=== PATIENT | female | born 1960 | race Caucasian/White ===

== ENCOUNTER 2016-12-19 17:32 | Emergency (ER) | payer OTHER ==
[~2016-12-19] VITALS: Ht 147.3 cm; Wt 47.6 kg
[~2016-12-19 17:32] MED LIST: CARI350T PO; CLON2TAB4 PO; LEVO150T PO; METH5TAB PO; METO5TAB87 PO; PANT40TA2 PO
[2016-12-19] MEDS ORDERED: IV SET PRIMARY PUMP SET 1 EA INFUS.SET MC ONE (17:54)
[2016-12-19] MEDS ORDERED: IV NS 0.9% 500 ML IV ONE (17:54)
[2016-12-19 17:59] LABS: BASOPHILS # (AUTO) 0.1 /CMM (0.0-0.2); BASOPHILS % (AUTO) 0.7 % (0.0-2.0); DIFF TOTAL % 100 %; EOSINOPHILS # (AUTO) 0.1 /CMM (0.0-0.7); EOSINOPHILS % (AUTO) 1.7 % (0.0-6.0); HEMATOCRIT 40 % (33-45); HEMOGLOBIN 13.2 g/dL (11.5-14.8); LYMPHOCYTES # (AUTO) 2.4 /CMM (0.8-4.8); LYMPHOCYTES % (AUTO) 27.5 % (20.0-44.0); MEAN CORPUSCULAR HEMOGLOBIN 29 PG (26.0-33.0); MEAN CORPUSCULAR HGB CONC 33 g/dl (31.0-36.0); MEAN CORPUSCULAR VOLUME 89 fL (82-100); MONOCYTES # (AUTO) 0.7 /CMM (0.1-1.30); NEUTROPHILS # (AUTO) 5.4 /CMM (1.8-8.9); NEUTROPHILS % (AUTO) 62.1 % (43.0-81.0); PLATELET COUNT (AUTO) 383 /CMM (150-450); WHITE BLOOD COUNT (AUTO) 8.8 K/uL (4.3-11.0)
[2016-12-19] MEDS ORDERED: IV NS 0.9% 500 ML BAG IV ONE (18:00)
[2016-12-19 18:08] LABS: CALCIUM, SERUM 8.7 mg/dL (8.5-10.1); CREATININE 0.8 mg/dL (0.6-1.3); POTASSIUM 3.7 mmol/L (3.5-5.1)
[2016-12-19 18:13] LABS: ALBUMIN 3.3 g/dL (3.4-5.0); BILIRUBIN,DIRECT 0.1 mg/dL (0.0-0.2); BILIRUBIN,TOTAL 0.4 mg/dL (0.2-1.0); INDIRECT BILIRUBIN 0.3 mg/dL (0.0-1.1); TOTAL PROTEIN, SERUM 7.8 g/dL (6.4-8.2)
[2016-12-19] MEDS ORDERED: ONDANSETRON HCL/PF 4 MG/2 ML VIAL ONE ×2 (18:28→19:14)
[2016-12-19] MEDS ORDERED: MORPHINE SULFATE INJ 4 MG/ML DISP.SYRIN ONE (18:28)
[2016-12-19] MEDS ORDERED: ONDANSETRON HCL/PF 4 MG/2 ML VIAL IV ONE ×2 (18:30→19:30)
[2016-12-19] MEDS ORDERED: MORPHINE SULFATE INJ 2 MG/ML DISP.SYRIN IV ONE (18:30)
[2016-12-19] MEDS ORDERED: IOHEXOL-300 100 ML VIAL IV ONE (18:45)
[2016-12-19] MEDS ORDERED: IV NS 0.9% 250 ML IV ONE (18:45)
[2016-12-19] MEDS ORDERED: CT SWABBABLE VALVE TRANS SET 1 EA INFUS.SET MC ONE (18:45)
[2016-12-19 20:04] VITALS: BP 132/85
== END 2016-12-19 20:04 | disposition home or self-care (01) ==
LOC: ER 17:34
DX: R10.84 Generalized abdominal pain (principal); R19.00 Intra-abdominal and pelvic swelling, mass and lump, unspecified site; K50.90 Crohn's disease, unspecified, without complications; J44.9 Chronic obstructive pulmonary disease, unspecified; E03.9 Hypothyroidism, unspecified; F17.200 Nicotine dependence, unspecified, uncomplicated
CPT/HCPCS: 36415; 71010-TC; 80048-TC; 80076-TC; 83690-TC; 85025-TC; A4606; J2270; J2405; J7040; J7050; Q9967; Z7610

== ENCOUNTER 2017-11-02 14:48 | Emergency (ER) | payer OTHER ==
[~2017-11-02] VITALS: Ht 149.9 cm; Wt 48.5 kg
[2017-11-02 14:52] VITALS: BP 125/85
== END 2017-11-02 16:09 | disposition home or self-care (01) ==
LOC: ER 14:58
DX: Z53.21 Procedure and treatment not carried out due to patient leaving prior to being seen by health care provider (principal)
CPT/HCPCS: A4606; Z7610

== ENCOUNTER 2019-08-26 12:21 | Emergency (ER) | payer OTHER ==
[~2019-08-26] VITALS: Ht 147.3 cm; Wt 53.5 kg
[~2019-08-26 12:21] MED LIST changes: +CLON2TAB11 PO; -CLON2TAB4 PO
--- NOTE | 2019-08-26 12:50 | NUR ---
[id number] FRM HOME, ABDOMINAL PAIN W/ N/V X 1-2 MONTHS. PATIENT ACCOMPANIED TO BED. CONNECTED TO MONITOR. WILL CONTINUE TO MONITOR ACCORDINGLY
[2019-08-26] MEDS ORDERED: IV NS 0.9% 1,000 ML BAG IV ONE (13:00)
[2019-08-26] MEDS ORDERED: ONDANSETRON HCL/PF 4 MG/2 ML VIAL IVP ONE (13:00)
[2019-08-26] MEDS ORDERED: MORPHINE SULFATE INJ 2 MG/ML DISP.SYRIN IV ONE (13:00)
[2019-08-26] MEDS ORDERED: HYDROMORPHONE INJ 0.5 MG/0.5 ML SYRINGE IV ONE (13:30)
[2019-08-26 13:45] LABS: BASOPHILS % (AUTO) 0.2 % (0.0-2.0); EOSINOPHILS % (AUTO) 0.1 % (0.0-6.0); HEMATOCRIT 44 % (33-45); HEMOGLOBIN 14.4 g/dL (11.5-14.8); LYMPHOCYTES # (AUTO) 0.8 /CMM (0.8-4.8); LYMPHOCYTES % (AUTO) 4.7 % (20.0-44.0); MEAN CORPUSCULAR HGB CONC 33 g/dl (31.0-36.0); MEAN CORPUSCULAR VOLUME 92 fL (82-100); MONOCYTES % (AUTO) 6.1 % (2.0-12.0); NEUTROPHILS # (AUTO) 14.9 /CMM (1.8-8.9); NEUTROPHILS % (AUTO) 88.9 % (43.0-81.0); PLATELET COUNT (AUTO) 368 /CMM (150-450); RED BLOOD CELL COUNT(AUTO) 4.78 MIL/uL (4.0-5.2); WHITE BLOOD COUNT (AUTO) 16.7 K/uL (4.3-11.0)
[2019-08-26 13:50] LABS: CALCIUM, SERUM 8.8 mg/dL (8.5-10.1); CREATININE 0.7 mg/dL (0.6-1.3); POTASSIUM 4.4 mmol/L (3.5-5.1)
[2019-08-26] MEDS ORDERED: HYDROMORPHONE 1 MG/1 ML DISP.SYRIN ONE (13:55)
[2019-08-26] MEDS ORDERED: ONDANSETRON HCL/PF 4 MG/2 ML VIAL ONE (13:55)
[2019-08-26 13:56] LABS: BILIRUBIN,DIRECT 0.2 mg/dL (0.0-0.2); BILIRUBIN,TOTAL 0.5 mg/dL (0.2-1.0)
--- NOTE | 2019-08-26 14:01 | NUR ---
patient left unit via rney with senior radiation protection technician
--- NOTE | 2019-08-26 14:14 | NUR ---
patient back from radiology
[2019-08-26 15:37] LABS: APPEARANCE,URINE Clear (CLEAR); BILIRUBIN,URINE MODERATE (NEGATIVE); BLOOD, URINE Negative Ery/uL (NEGATIVE); COLOR,URINE Amber (YELLOW); KETONES,URINE 80 (NEGATIVE); LEUKOCYTE ESTERASE ,URINE Negative (NEGATIVE); NITRITE, URINE Negative (NEGATIVE); PROTEIN,URINE 30 mg/dl (NEGATIVE); UGLUCOSE Negative (NEGATIVE)
--- NOTE | 2019-08-26 16:17 | NUR ---
Patient discharged to home in stable condition. Written and verbal after care instructions given. Written prescription provided to patient. Patient verbalizes understanding of instruction.
[2019-08-26 16:18] VITALS: BP 140/70
[2019-08-26 16:32] LABS: BACTERIA,URINE None seen /HPF (None Seen); RBC,URINE 0-2 /HPF (0-2); SQUAMOUS EPITHELIAL CELL,UR Few /HPF (None Seen); WBC,URINE 0-2 /HPF (0-3)
== END 2019-08-26 16:19 | disposition home or self-care (01) ==
LOC: ER 12:24
DX: N94.89 Other specified conditions associated with female genital organs and menstrual cycle (principal); K59.00 Constipation, unspecified; R11.2 Nausea with vomiting, unspecified; G89.29 Other chronic pain; K50.90 Crohn's disease, unspecified, without complications; J44.9 Chronic obstructive pulmonary disease, unspecified; E03.9 Hypothyroidism, unspecified; F17.200 Nicotine dependence, unspecified, uncomplicated; Z79.899 Other long term (current) drug therapy
CPT/HCPCS: 36415; 74176; 80048; 80076; 81001; 85025; 83690; 96361; 96374; 96375; 99284; J1170; J2405; J7030; 81000-TC

== ENCOUNTER 2021-05-25 20:45 | Emergency (ER) | payer OTHER ==
[~2021-05-25] VITALS: Ht 149.9 cm; Wt 49.9 kg
--- NOTE | 2021-05-25 21:04 | NUR ---
PATIENT CAME TO THE ER BED 7 BIBRA FROM HOME C/O DIARRHEA, NAUSEA, VOMITING, AND HEADACHE. PATIENT IS ALERT AND ORIENTED x4. DENIES SHORTNESS OFBREATH. CONNECTED TO THE MONITOR.
[2021-05-25] MEDS ORDERED: ONDANSETRON HCL/PF 4 MG/2 ML VIAL ONE (21:06)
--- NOTE | 2021-05-25 21:09 | NUR ---
BLOOD COLLECTED AND SENT TO THE LAB.
[2021-05-25] MEDS: IV NS 0.9% 1,000 ML BAG IV ONE (21:13)
[2021-05-25] MEDS: ONDANSETRON HCL/PF 4 MG/2 ML VIAL IVP ONE (21:13)
[2021-05-25 21:14] LABS: BASOPHILS # (AUTO) 0.1 K/uL (0.0-0.2); BASOPHILS % (AUTO) 0.6 % (0.0-2.0); HEMATOCRIT 48 % (33-45); HEMOGLOBIN 15.6 g/dL (11.5-14.8); LYMPHOCYTES # (AUTO) 0.8 K/uL (0.8-4.8); LYMPHOCYTES % (AUTO) 4.3 % (20.0-44.0); MEAN CORPUSCULAR HGB CONC 33 g/dl (31.0-36.0); MEAN CORPUSCULAR VOLUME 92 fL (82-100); MONOCYTES # (AUTO) 0.7 K/uL (0.1-1.30); MONOCYTES % (AUTO) 3.7 % (2.0-12.0); NEUTROPHILS # (AUTO) 17.2 K/uL (1.8-8.9); NEUTROPHILS % (AUTO) 91.4 % (43.0-81.0); PLATELET COUNT (AUTO) 391 K/uL (150-450); RED BLOOD CELL COUNT(AUTO) 5.18 MIL/uL (4.0-5.2); WHITE BLOOD COUNT (AUTO) 18.8 K/uL (4.3-11.0)
[2021-05-25 21:28] LABS: ALBUMIN 3.5 g/dL (3.4-5.0); BILIRUBIN,DIRECT 0.3 mg/dL (0.0-0.2); BILIRUBIN,TOTAL 0.6 mg/dL (0.2-1.0); CALCIUM, SERUM 9.2 mg/dL (8.5-10.1); CREATININE 0.9 mg/dL (0.6-1.3); TOTAL PROTEIN, SERUM 8.1 g/dL (6.4-8.2)
[2021-05-25] MEDS ORDERED: ONDA4TAB11 PO (21:45)
[2021-05-25 22:34] LABS: BILIRUBIN,URINE SMALL (NEGATIVE); COLOR,URINE YELLOW (YELLOW); LEUKOCYTE ESTERASE ,URINE Trace (NEGATIVE); NITRITE, URINE Negative (NEGATIVE); PROTEIN,URINE 30 mg/dl (NEGATIVE); UGLUCOSE Negative (NEGATIVE)
[2021-05-25 22:36] LABS: BACTERIA,URINE Few /HPF (None Seen); RBC,URINE NONE SEEN /HPF (0-2); SQUAMOUS EPITHELIAL CELL,UR Few /HPF (None Seen)
--- NOTE | 2021-05-25 22:36 | NUR ---
URINE COLLECTED AND SENT TO LAB
[2021-05-26] MEDS ORDERED: POLY17PO4 PO (00:56)
[2021-05-26] MEDS ORDERED: CIPR-262 PO (00:56)
[2021-05-26] MEDS ORDERED: METR500T PO (00:56)
--- NOTE | 2021-05-26 01:23 | NUR ---
Pt is medically stable for d/c per MD. IV removed. Catheter intact and site benign. Pressure and 4x4 applied to site. No bleeding noted.Patient discharged to home in stable condition. Rx and Written and verbal after care instructions given. Patient verbalizes understanding of instruction.
[2021-05-26 02:03] VITALS: BP 133/73
== END 2021-05-26 01:23 | disposition home or self-care (01) ==
LOC: ER 21:01
DX: R10.84 Generalized abdominal pain (principal); R11.10 Vomiting, unspecified; J44.9 Chronic obstructive pulmonary disease, unspecified; E03.9 Hypothyroidism, unspecified; Z87.891 Personal history of nicotine dependence; Z79.899 Other long term (current) drug therapy
CPT/HCPCS: 36415; 74176; 80048; 80076; 81001; 83690; 85025; 96361; 96374; 99284; J2405; J7030

== ENCOUNTER 2021-09-22 08:01 | Emergency (ER) | payer OTHER ==
[~2021-09-22] VITALS: Ht 147.3 cm; Wt 46.3 kg
[~2021-09-22 08:01] MED LIST changes: +CIPR-262 PO; +METR500T PO; +ONDA4TAB11 PO; +POLY17PO4 PO
[2021-09-22 08:23] VITALS: BP 179/87
[2021-09-22 09:05] LABS: BILIRUBIN,URINE Negative (NEGATIVE); COLOR,URINE YELLOW (YELLOW); LEUKOCYTE ESTERASE ,URINE Negative (NEGATIVE); NITRITE, URINE Negative (NEGATIVE); PROTEIN,URINE Negative (NEGATIVE); UGLUCOSE Negative (NEGATIVE); UROBILINOGEN,URINE 0.2 EU/dL (0.2)
[2021-09-22] MEDS ORDERED: ERYT3.5O9 EACHEYE (09:25)
--- NOTE | 2021-09-22 09:44 | NUR ---
Patient discharged to home in stable condition. Written and verbal after care instructions given. Patient verbalizes understanding of instruction.
== END 2021-09-22 09:45 | disposition home or self-care (01) ==
LOC: ER 08:29
DX: H00.014 Hordeolum externum left upper eyelid (principal); H00.011 Hordeolum externum right upper eyelid; K50.90 Crohn's disease, unspecified, without complications; J44.9 Chronic obstructive pulmonary disease, unspecified; E03.9 Hypothyroidism, unspecified; Z87.891 Personal history of nicotine dependence; Z79.899 Other long term (current) drug therapy
CPT/HCPCS: 87086-TC

== ENCOUNTER 2021-10-17 07:19 | Emergency (ER) | payer OTHER ==
[~2021-10-17] VITALS: Ht 147.3 cm; Wt 52.2 kg
[~2021-10-17 07:19] MED LIST changes: +ERYT3.5O9 EACHEYE
--- NOTE | 2021-10-17 07:48 | NUR ---
DR BERNSTEIN AT BEDSIDE FOR MD [address]
--- NOTE | 2021-10-17 07:48 | NUR ---
PT CAME TO ER C/O HEADACHE, N/V SINCE THIS MORNING. HX OF EYE STYE, CROHN'S DISEASE. AAOX4. ASSISTED TO ER BED 4, BLANKETS GIVEN.
--- NOTE | 2021-10-17 08:24 | NUR ---
blood sample obtained and sent to lab
[2021-10-17] MEDS ORDERED: KETOROLAC TROMETHAMINE 15 MG/ML VIAL ONE (08:27)
[2021-10-17] MEDS ORDERED: PROCHLORPERAZINE EDISYLATE 10 MG/2 ML VIAL ONE (08:28)
[2021-10-17] MEDS ORDERED: diphenhydrAMINE HCL 50 MG/ML VIAL ONE (08:29)
[2021-10-17] MEDS ORDERED: PROCHLORPERAZINE EDISYLATE 10 MG/2 ML VIAL IVP ONE (08:30)
[2021-10-17] MEDS ORDERED: IV NS 0.9% 1,000 ML BAG IV ONE (08:30)
[2021-10-17] MEDS ORDERED: KETOROLAC TROMETHAMINE INJ 30 MG/ML VIAL IV ONE (08:30)
[2021-10-17] MEDS ORDERED: diphenhydrAMINE HCL 50 MG/ML VIAL IV ONE (08:30)
[2021-10-17 08:34] LABS: BASOPHILS # (AUTO) 0.1 K/uL (0.0-0.2); BASOPHILS % (AUTO) 1.2 % (0.0-2.0); EOSINOPHILS % (AUTO) 0.4 % (0.0-6.0); HEMATOCRIT 42 % (33-45); HEMOGLOBIN 13.5 g/dL (11.5-14.8); LYMPHOCYTES # (AUTO) 2.2 K/uL (0.8-4.8); LYMPHOCYTES % (AUTO) 23.6 % (20.0-44.0); MEAN CORPUSCULAR HGB CONC 33 g/dl (31.0-36.0); MEAN CORPUSCULAR VOLUME 94 fL (82-100); MONOCYTES # (AUTO) 0.8 K/uL (0.1-1.30); MONOCYTES % (AUTO) 8.2 % (2.0-12.0); NEUTROPHILS # (AUTO) 6.1 K/uL (1.8-8.9); NEUTROPHILS % (AUTO) 66.6 % (43.0-81.0); PLATELET COUNT (AUTO) 339 K/uL (150-450); RED BLOOD CELL COUNT(AUTO) 4.42 MIL/uL (4.0-5.2); WHITE BLOOD COUNT (AUTO) 9.2 K/uL (4.3-11.0)
--- NOTE | 2021-10-17 08:46 | NUR ---
PT BACK FROM CT
[2021-10-17 09:11] LABS: CARBON DIOXIDE 30 mmol/L (21-32); CHLORIDE 102 mmol/L (98-107); CREATININE 0.8 mg/dL (0.6-1.3); GLUCOSE 104 mg/dL (74-106); POTASSIUM 3.3 mmol/L (3.5-5.1); SODIUM SERUM 139 mmol/L (136-145); UREA NITROGEN, BLOOD 9 mg/dL (7-18)
[2021-10-17 09:18] LABS: ALANINE AMINOTRANSFERASE 17 U/L (12-78); ALBUMIN 3.7 g/dL (3.4-5.0); ALKALINE PHOSPHATASE 85 U/L (46-116); ASPARTATE AMINOTRANSFERASE 23 U/L (15-37); BILIRUBIN,DIRECT 0.1 mg/dL (0.0-0.2); BILIRUBIN,TOTAL 0.4 mg/dL (0.2-1.0); LIPASE 44 U/L (73-393); TOTAL PROTEIN, SERUM 7.9 g/dL (6.4-8.2)
--- NOTE | 2021-10-17 09:21 | NUR ---
urine sample obtained and sent to lab
[2021-10-17] MEDS ORDERED: ONDANSETRON HCL/PF 4 MG/2 ML VIAL ONE (10:13)
[2021-10-17] MEDS ORDERED: ONDANSETRON HCL/PF - ER 4 MG/2 ML VIAL IV ONE (10:30)
[2021-10-17 10:48] LABS: BILIRUBIN,URINE NEGATIVE (NEGATIVE); COLOR,URINE YELLOW (YELLOW); LEUKOCYTE ESTERASE ,URINE NEGATIVE (NEGATIVE); NITRITE, URINE NEGATIVE (NEGATIVE); PH,URINE 6.5 (5.0-8.0); PROTEIN,URINE NEGATIVE (NEGATIVE); UGLUCOSE NEGATIVE (NEGATIVE); UROBILINOGEN,URINE 0.2 EU/dL (0.2)
--- NOTE | 2021-10-17 10:55 | NUR ---
PT LAYING COMFORTABLY IN BED, BLANKET GIVEN, NEEDS MET
--- NOTE | 2021-10-17 11:48 | NUR ---
PT AMBULATED TO RESTROOM AND RETURN. V/S STABLE
--- NOTE | 2021-10-17 13:02 | NUR ---
LAB AT BEDSIDE
--- NOTE | 2021-10-17 13:29 | NUR ---
PT LAYING COMFROTABLY IN BED, NEEDS MET
[2021-10-17] MEDS ORDERED: ONDA4TAB5 PO (14:04)
--- NOTE | 2021-10-17 14:18 | NUR ---
IV removed. Catheter intact and site benign. Pressure and 4x4 applied to site. No bleeding noted.
--- NOTE | 2021-10-17 14:20 | NUR ---
Patient discharged to home in stable condition. Written and verbal after care instructions given. Patient verbalizes understanding of instruction.
[2021-10-17 14:30] VITALS: BP 141/72
== END 2021-10-17 14:22 | disposition home or self-care (01) ==
LOC: ER 07:22
DX: R11.2 Nausea with vomiting, unspecified (principal); R51.9 Headache, unspecified; E87.2 Acidosis; J44.9 Chronic obstructive pulmonary disease, unspecified; E03.9 Hypothyroidism, unspecified; Z79.2 Long term (current) use of antibiotics; Z79.899 Other long term (current) drug therapy
CPT/HCPCS: 36415; 70450; 80048; 80076; 81003; 83605 ×2; 83690; 85025; 87077; 87086; 87186; 96361; 96374; 96375; 99285; J0780; J1200; J1885; J2405 ×2; J7030

== ENCOUNTER 2022-09-19 07:27 | Emergency (ER) | payer OTHER ==
[~2022-09-19] VITALS: Ht 147.3 cm; Wt 50.8 kg
[~2022-09-19 07:27] MED LIST changes: +ONDA4TAB5 PO
[2022-09-19] MEDS ORDERED: IV NS 0.9% 1,000 ML BAG IV ONE (08:00)
[2022-09-19] MEDS ORDERED: ONDANSETRON HCL/PF 4 MG/2 ML VIAL IVP ONE (08:00)
[2022-09-19] MEDS ORDERED: PROCHLORPERAZINE EDISYLATE 10 MG/2 ML VIAL IVP ONE (08:00)
[2022-09-19 08:11] LABS: BASOPHILS % (AUTO) 0.3 % (0.0-2.0); EOSINOPHILS % (AUTO) 0.5 % (0.0-6.0); HEMATOCRIT 42 % (33-45); HEMOGLOBIN 13.3 g/dL (11.5-14.8); LYMPHOCYTES # (AUTO) 1.2 K/uL (0.8-4.8); LYMPHOCYTES % (AUTO) 14.3 % (20.0-44.0); MEAN CORPUSCULAR HGB CONC 32 g/dl (31.0-36.0); MEAN CORPUSCULAR VOLUME 94 fL (82-100); MONOCYTES # (AUTO) 0.4 K/uL (0.1-1.30); MONOCYTES % (AUTO) 5.3 % (2.0-12.0); NEUTROPHILS # (AUTO) 6.7 K/uL (1.8-8.9); NEUTROPHILS % (AUTO) 79.6 % (43.0-81.0); PLATELET COUNT (AUTO) 318 K/uL (150-450); RED BLOOD CELL COUNT(AUTO) 4.43 MIL/uL (4.0-5.2); WHITE BLOOD COUNT (AUTO) 8.4 K/uL (4.3-11.0)
[2022-09-19] MEDS ORDERED: PROCHLORPERAZINE EDISYLATE 10 MG/2 ML VIAL ONE (08:19)
[2022-09-19] MEDS ORDERED: ONDANSETRON HCL/PF 4 MG/2 ML VIAL ONE (08:20)
[2022-09-19 08:32] LABS: ALANINE AMINOTRANSFERASE 13 U/L (12-78); ALBUMIN 3.3 g/dL (3.4-5.0); ALKALINE PHOSPHATASE 72 U/L (46-116); ASPARTATE AMINOTRANSFERASE 21 U/L (15-37); BILIRUBIN,DIRECT 0.1 mg/dL (0.0-0.2); BILIRUBIN,TOTAL 0.3 mg/dL (0.2-1.0); CARBON DIOXIDE 30 mmol/L (21-32); CHLORIDE 104 mmol/L (98-107); CREATININE 0.7 mg/dL (0.6-1.3); GLUCOSE 123 mg/dL (74-106); LIPASE 36 U/L (73-393); POTASSIUM 3.7 mmol/L (3.5-5.1); SODIUM SERUM 139 mmol/L (136-145); TOTAL PROTEIN, SERUM 7.2 g/dL (6.4-8.2); UREA NITROGEN, BLOOD 11 mg/dL (7-18)
--- NOTE | 2022-09-19 08:57 | NUR ---
Nausea/Vomiting resolved after Compazine. IVF bolus infusing. Tolerating well Pt resting comfortably in bed, appears to be sleeping Follow up labs, and other diagnostic exam.
--- NOTE | 2022-09-19 09:03 | NUR ---
Karoline babb in [facility] - 09/19/22 at 0954 by CALLIE RAVEN (LORNE)
[2022-09-19] MEDS ORDERED: hydrALAZINE HCL IV 20 MG VIAL ONE (09:28)
[2022-09-19] MEDS ORDERED: hydrALAZINE HCL IV 20 MG VIAL IV ONE (09:30)
[2022-09-19] MEDS ORDERED: IBUPROFEN 600 MG TABLET PO ONE (10:30)
[2022-09-19] MEDS ORDERED: ONDA4TAB5 PO (11:43)
[2022-09-19 11:59] LABS: BILIRUBIN,URINE NEGATIVE (NEGATIVE); COLOR,URINE YELLOW (YELLOW); LEUKOCYTE ESTERASE ,URINE NEGATIVE (NEGATIVE); NITRITE, URINE NEGATIVE (NEGATIVE); PH,URINE 8.5 (5.0-8.0); PROTEIN,URINE NEGATIVE (NEGATIVE); UGLUCOSE NEGATIVE (NEGATIVE); UROBILINOGEN,URINE 0.2 EU/dL (0.2)
[2022-09-19] MEDS ORDERED: MORPHINE SULFATE INJ 2 MG/ML DISP.SYRIN ONE (12:00)
[2022-09-19] MEDS ORDERED: MORPHINE SULFATE INJ 2 MG/ML DISP.SYRIN IV ONE (12:00)
[2022-09-19 12:04] LABS: BACTERIA,URINE None seen /HPF (None Seen); RBC,URINE 0-2 /HPF (0-2); SQUAMOUS EPITHELIAL CELL,UR Few /HPF (None Seen); WBC,URINE 0-2 /HPF (0-3)
[2022-09-19 12:40] VITALS: BP 142/81
--- NOTE | 2022-09-19 12:41 | NUR ---
Patient discharged to home in stable condition. Written and verbal after care instructions given. Patient verbalizes understanding of instruction.IV removed. Catheter intact and site benign. Pressure and 4x4 applied to site. No bleeding noted.
== END 2022-09-19 12:41 | disposition home or self-care (01) ==
LOC: ER 07:30
DX: R11.2 Nausea with vomiting, unspecified (principal); R51.9 Headache, unspecified; J44.9 Chronic obstructive pulmonary disease, unspecified; E03.9 Hypothyroidism, unspecified; Z79.899 Other long term (current) drug therapy
CPT/HCPCS: 99285; 96374; 70450; 71045; 96375; 96361; 93005; 85025; 80048; 87086; 83605; 83690; 80076; 81001; 36415; 84484 ×2; J0780; J0360; J7030; J2270; J2405